=== PATIENT | female | born 1950 | race Caucasian/White ===

== ENCOUNTER 2022-10-29 10:05 | Day surgery (SDC) | payer MEDICARE, BC ==
[2022-10-25 11:47] LABS: BASOPHILS % (AUTO) 0.6 % (0-1); EOSINOPHILS # (AUTO) 0.2 X10'3 (0-0.9); EOSINOPHILS % (AUTO) 3.8 % (0-6); LYMPHOCYTES # (AUTO) 1.7 X10'3 (1.1-4.8); LYMPHOCYTES % (AUTO) 33.7 % (21-51); MEAN CORPUSCULAR HEMOGLOBIN 31.2 PG (27.0-31.0); MEAN CORPUSCULAR HGB CONC 34.1 g/dL (33.0-36.5); MEAN CORPUSCULAR VOLUME 91.4 FL (78-98); MEAN PLATELET VOLUME 7.6 FL (7.4-10.4); MONOCYTES # (AUTO) 0.3 X10'3 (0-0.9); MONOCYTES % (AUTO) 6.8 % (2-12); NEUTROPHILS # (AUTO) 2.8 X10'3 (1.8-7.7); NEUTROPHILS % (AUTO) 55.1 % (42-75); PRE OP HEMATOCRIT 41.5 % (35.0-45.0); PRE OP HEMOGLOBIN 14.2 g/dL (12.0-16.0); PRE OP PLATELET COUNT 206 X10'3 (140-440); RED BLOOD COUNT 4.54 X10'6 (4.20-5.60); RED CELL DISTRIBUTION WIDTH 13.3 % (11.5-14.5)
[2022-10-25 12:02] LABS: ALBUMIN 4.1 G/DL (3.4-5.0); ALBUMIN/GLOBULIN RATIO 1.3 (1.1-1.5); ALKALINE PHOSPHATASE 72 IU/L (46-116); BLOOD UREA NITROGEN 8 MG/DL (7-18); BUN/CREATININE RATIO 12.1 (6.6-38.0); CALCIUM 9.5 MG/DL (8.5-10.1); CHLORIDE 105 MMOL/L (99-107); CREATININE 0.66 MG/DL (0.40-0.90); PRE OP ALT 32 U/L (30-65); PRE OP ANION GAP 8 (8-16); PRE OP AST 20 U/L (10-37); PRE OP BILIRUB, TOTAL 0.3 MG/DL (0.0-1.0); PRE OP GLUCOSE 114 MG/DL (70-104); PRE OP SODIUM 140 MMOL/L (135-145); TOTAL CARBON DIOXIDE 26.6 MMOL/L (24-32); TOTAL PROTEIN 7.2 G/DL (6.4-8.2); eGFR 89 ML/MIN
[~2022-10-29] VITALS: Ht 162.6 cm; Wt 70.8 kg
[2022-10-29] VITALS (7 sets, daily range): BP systolic 146–165; BP diastolic 71–87
[~2022-10-29 10:05] MED LIST: BUPIVAcaine/PF 7.5mg/ml (0.75%) 10ml vial ONE; NO HOME MEDS; ceFAZolin inj. 2,000 MG in dextrose 5%-water 100 ML IV ONE; famotidine 20mg tablet PO ONE; ringers solution, lacted 1,000 ML IV SCH
[2022-10-29] MEDS ORDERED: ondansetron/PF 4mg/2ml inj IV PRN (11:40)
[2022-10-29] MEDS ORDERED: ringers solution, lacted 1,000 ML IV SCH (11:40)
[2022-10-29] MEDS ORDERED: morphine 4 MG/ML inj SYRINge IV PRN (11:40)
[2022-10-29] MEDS ORDERED: morphine 2 MG/ML inj. syringe IV PRN (11:40)
[2022-10-29] MEDS ORDERED: labetalol 5mg/ml 20ml inj. IV PRN (11:40)
[2022-10-29] MEDS ORDERED: fentaNYL/PF 50MCG/1 ML 2ML syringe ONE (13:21)
[2022-10-29] MEDS ORDERED: LIDOcaine 0.5% (5mg/ml) 50ml vial ONE (13:22)
--- NOTE | 2022-10-29 13:50 | NUR ---
Received from OR via [facility], accompanied by Anesthesiologist DR LINARES and report given by Anesthesiologist AND MALL MANAGER. PT AWAKE, DENIES PAIN, RIGHT HAND/WRIST W/BIAS DRSG COVERING CDI. 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 Addendum: 10/29/22 at 1421 by Tiffanie Phipps RN Amended: Links added.
--- NOTE | 2022-10-29 15:00 | NUR ---
PT UP AND ABLE TO AMBULATE SAFELY, TOLERATING ORAL FLUIDS. D/C INSTRUCTIONS GIVEN AND GONE OVER W/PT WHO VERBALIZED UNDERSTANDING. PT D/CD TO HOME VIA W/C TO PRIVATE VEHICLE W/O INCIDENT. Addendum: 10/29/22 at 1512 by Tiffanie Phipps RN Amended: Links added.
== END 2022-10-29 15:00 | disposition home or self-care (01) ==
LOC: PAS 10:05
PROVIDERS: ATTEND Orthopaedic Surgery Hand Surgery
DX: M67.431 Ganglion, right wrist (principal); M18.11 Unilateral primary osteoarthritis of first carpometacarpal joint, right hand; M19.071 Primary osteoarthritis, right ankle and foot; J45.909 Unspecified asthma, uncomplicated; Z90.710 Acquired absence of both cervix and uterus; Z90.49 Acquired absence of other specified parts of digestive tract; Z98.890 Other specified postprocedural states; Z79.899 Other long term (current) drug therapy
CPT/HCPCS: 25111; 36415; 80053; 82948; 85025; 93005; J0690; J3010; J3490; J7030; J7060; J7120; Z7506; Z7512; A4215; A4618; A7000